=== PATIENT | female | born 1950 | race Caucasian/White ===

== ENCOUNTER 2017-09-20 08:20 | Outpatient (CLI) | payer MEDICARE, BC ==
[~2017-09-20 08:20] MED LIST: CHOL10002 PO; DOCU-28 PO; METH-603 PO; METO100T14 PO; PANT-47 PO; SUCR1TAB34 PO; VITAMIN B12 IM
[2017-09-20 10:08] LABS: BASOPHILS % (AUTO) 0.5 % (0-1); EOSINOPHILS # (AUTO) 0.2 X10'3 (0-0.9); EOSINOPHILS % (AUTO) 2.8 % (0-6); HEMATOCRIT 36.8 % (35.0-45.0); HEMOGLOBIN 12.5 g/dl (12.0-16.0); LYMPHOCYTES # (AUTO) 2.5 X10'3 (1.1-4.8); MEAN CORPUSCULAR HEMOGLOBIN 29.7 PG (27.0-31.0); MEAN CORPUSCULAR HGB CONC 33.9 % (33.0-36.5); MEAN CORPUSCULAR VOLUME 87.5 FL (78-98); MONOCYTES # (AUTO) 0.6 X10'3 (0-0.9); MONOCYTES % (AUTO) 6.8 % (2-12); NEUTROPHILS # (AUTO) 4.9 X10'3 (1.8-7.7); NEUTROPHILS % (AUTO) 59.9 % (42-75); PLATELET COUNT 259 X10'3 (140-440); RED CELL DISTRIBUTION WIDTH 14.9 % (11.5-14.5); WHITE BLOOD COUNT 8.2 X10'3 (4.5-11.0)
[2017-09-20 10:11] LABS: CLARITY,URINE SLIGHTLY CLOUDY (Clear); COLOR,URINE YELLOW (Yellow); GLUCOSE, URINE NEGATIVE (Neg); KETONES,URINE NEGATIVE (Neg); LEUKOCYTE ESTERASE ,URINE NEGATIVE (Neg); NITRITES, URINE NEGATIVE (Neg); OCCULT BLOOD,URINE NEGATIVE (Neg); PH,URINE 5.5 (4.8-8.0); PROTEIN,URINE NEGATIVE (Neg); UROBILINOGEN,URINE 0.2 E.U/dL (0.2-1.0)
[2017-09-20 10:12] LABS: UA COLLECTION TYPE CLN CATCH MIDSTREAM
[2017-09-20 10:21] LABS: RBC,URINE NONE SEEN /HPF (0-2); WBC,URINE 0-4 /HPF (0-4)
[2017-09-20 10:22] LABS: BACTERIA,URINE 2+ /HPF (Neg)
[2017-09-20 10:23] LABS: MUCUS STRANDS NONE SEEN /LPF (Neg); SQUAMOUS EPITHELIAL CELL,UR MODERATE /LPF (FEW)
[2017-09-20 10:32] LABS: ALANINE AMINOTRANSFERASE 36 U/L (12-78); ALBUMIN 3.5 G/DL (3.4-5.0); ALKALINE PHOSPHATASE 96 IU/L (46-116); ANION GAP 9 (8-16); ASPARTATE AMINO TRANSFERASE 24 U/L (10-37); BILIRUBIN,TOTAL 0.4 MG/DL (0.1-1.0); BLOOD UREA NITROGEN 18 MG/DL (7-18); BUN/CREATININE RATIO 22.2 (6.6-38.0); CALCIUM 8.9 MG/DL (8.5-10.1); CHLORIDE 104 MMOL/L (99-107); CHOL/HDL RATIO 4.5 (0.00-4.99); CHOLESTEROL 195 MG/DL (0-200); CREATINE KINASE 39 U/L (26-192); CREATININE 0.81 MG/DL (0.40-0.90); GLUCOSE 112 MG/DL (70-104); HDL CHOLESTEROL 43 MG/DL (35-60); LDL CHOLESTEROL 114 MG/DL (50-100); POTASSIUM 4.1 MMOL/L (3.5-5.1); SODIUM 139 MMOL/L (135-145); TOTAL CARBON DIOXIDE 26.3 MMOL/L (24-32); TOTAL PROTEIN 6.9 G/DL (6.4-8.2); TRIGLYCERIDES 243 MG/DL (20-135); eGFR 71 ML/MIN
== END 2017-09-20 23:59 | disposition home or self-care (01) ==
LOC: VAS 08:20
PROVIDERS: ATTEND Internal Medicine
DX: R59.9 Enlarged lymph nodes, unspecified (principal); R06.02 Shortness of breath; R60.0 Localized edema; J45.909 Unspecified asthma, uncomplicated; E11.9 Type 2 diabetes mellitus without complications
CPT/HCPCS: 36415; 71046; 80053; 80061; 81001; 82550; 83036; 84443; 85025; 93971

== ENCOUNTER 2020-12-04 08:54 | Emergency (ER) | payer MEDICARE, BC ==
[~2020-12-04] VITALS: Ht 167.6 cm; Wt 90.0 kg
[2020-12-04] MEDS ORDERED: acetaminophen 325mg tablet PO STA (09:06)
[2020-12-04] MEDS ORDERED: normal saline 1000ML IV soln IVB ONE (09:10)
[2020-12-04] MEDS ORDERED: morphine 4 MG/ML inj SYRINge IV ONE (09:10)
[2020-12-04] MEDS ORDERED: ondansetron/PF 4mg/2ml inj IV ONE (09:10)
[2020-12-04 09:59] LABS: BASOPHILS % (AUTO) 0.2 % (0-1); EOSINOPHILS % (AUTO) 0 % (0-6); HEMATOCRIT 36.2 % (35.0-45.0); HEMOGLOBIN 12.1 g/dl (12.0-16.0); LYMPHOCYTES # (AUTO) 0.6 X10'3 (1.1-4.8); LYMPHOCYTES % (AUTO) 5.5 % (21-51); MEAN CORPUSCULAR HEMOGLOBIN 30.4 PG (27.0-31.0); MEAN CORPUSCULAR HGB CONC 33.3 g/dL (33.0-36.5); MEAN CORPUSCULAR VOLUME 91.2 FL (78-98); MEAN PLATELET VOLUME 7.4 FL (7.4-10.4); MONOCYTES # (AUTO) 0.6 X10'3 (0-0.9); MONOCYTES % (AUTO) 5.6 % (2-12); NEUTROPHILS # (AUTO) 9.4 X10'3 (1.8-7.7); NEUTROPHILS % (AUTO) 88.7 % (42-75); PLATELET COUNT 165 X10'3 (140-440); RED BLOOD COUNT 3.97 X10'6 (4.20-5.60); RED CELL DISTRIBUTION WIDTH 14.2 % (11.5-14.5); WHITE BLOOD COUNT 10.6 X10'3 (4.5-11.0)
[2020-12-04 10:05] LABS: D-DIMER 0.53 MG/L FEU (0-0.50)
[2020-12-04 10:09] LABS: ALANINE AMINOTRANSFERASE 27 U/L (12-78); ALBUMIN 3.1 G/DL (3.4-5.0); ALBUMIN/GLOBULIN RATIO 0.8 (1.1-1.5); ALKALINE PHOSPHATASE 66 IU/L (46-116); ANION GAP 18 (8-16); ASPARTATE AMINO TRANSFERASE 2 U/L (10-37); BILIRUBIN,TOTAL 0.3 MG/DL (0.1-1.0); BLOOD UREA NITROGEN 22 MG/DL (7-18); BUN/CREATININE RATIO 19.1 (6.6-38.0); CALCIUM 7.6 MG/DL (8.5-10.1); CHLORIDE 98 MMOL/L (99-107); CREATININE 1.15 MG/DL (0.40-0.90); GLUCOSE 174 MG/DL (70-104); POTASSIUM 4.1 MMOL/L (3.5-5.1); SODIUM 133 MMOL/L (135-145); TOTAL CARBON DIOXIDE 16.8 MMOL/L (24-32); TOTAL PROTEIN 6.9 G/DL (6.4-8.2); eGFR 47 ML/MIN
[2020-12-04] MEDS ORDERED: CefTRIAXone 2gm/D5W 50ml BAG 50 ML IV ONE (10:40)
[2020-12-04 10:45] LABS: C-REACTIVE PROTEIN 17.31 MG/DL (0.0-0.5); FERRITIN 1276 NG/ML (8-252); LACTATE DEHYDROGENASE 459 U/L (81-234); MAGNESIUM 2.1 MG/DL (1.5-2.4)
[2020-12-04 10:46] LABS: CLARITY,URINE CLOUDY (Clear); COLOR,URINE YELLOW (Yellow); GLUCOSE, URINE NEGATIVE (Neg); KETONES,URINE >=80 mg/dl (Neg); LEUKOCYTE ESTERASE ,URINE NEGATIVE (Neg); NITRITES, URINE POSITIVE (Neg); OCCULT BLOOD,URINE MODERATE (Neg); PROTEIN,URINE 100 mg/dl (Neg); UROBILINOGEN,URINE 0.2 E.U/dL (0.2-1.0)
[2020-12-04 10:47] LABS: UA COLLECTION TYPE STRAIGHT CATH
[2020-12-04 11:02] LABS: BACTERIA,URINE 3+ /HPF (Neg); RBC,URINE 0-2 /HPF (0-2); SQUAMOUS EPITHELIAL CELL,UR FEW /LPF (FEW); WBC,URINE 0-4 /HPF (0-4)
--- NOTE | 2020-12-04 11:42 | NUR ---
relieving RN for break, pt is resting quietly on gurney, resp even and unlabored, pt c/o feeling hot, back pain, +nausea, headache, Dr Miles aware
[2020-12-04] MEDS ORDERED: CASIRIVIMAB (REGN10933) 1332MG 600 MG, IMDEVIMAB (REGN10987) 1332mg 600 MG in normal sa... IV ONE (12:50)
[2020-12-04] MEDS ORDERED: AZIT-31 PO (14:01)
[2020-12-04] MEDS ORDERED: DEXA6TAB6 PO (14:01)
[2020-12-04] MEDS ORDERED: dexamethasone 4mg tablet PO ONE (14:10)
[2020-12-04 16:56] VITALS: BP 118/67
[2020-12-05] MEDS ORDERED: MONT10TA32 PO (13:56)
[2020-12-05] MEDS ORDERED: OXYC1TAB17 PO (13:56)
[2020-12-05] MEDS ORDERED: MORP-92 PO (13:56)
[2020-12-05] MEDS ORDERED: FURO20TA4 PO (13:56)
[2020-12-05] MEDS ORDERED: BACL10TA2 PO (13:56)
[2020-12-05] MEDS ORDERED: LEVO75TA98 PO (13:56)
[2020-12-05] MEDS ORDERED: PREG50CA64 PO (13:56)
[2020-12-05] MEDS ORDERED: CYAN10007 IM (13:56)
[2020-12-05] MEDS ORDERED: LISI10TA27 PO (13:56)
[2020-12-05] MEDS ORDERED: CELE100C98 PO (13:56)
[2020-12-05] MEDS ORDERED: MAGN400T28 PO (13:56)
[2020-12-05] MEDS ORDERED: PANT40TA54 PO (13:56)
[2020-12-05] MEDS ORDERED: METO-411 PO (13:56)
== END 2020-12-04 16:58 | disposition home or self-care (01) ==
LOC: ER 08:54
DX: J18.9 Pneumonia, unspecified organism (principal); Z20.822 Contact with and (suspected) exposure to COVID-19; Z88.1 Allergy status to other antibiotic agents; Z88.2 Allergy status to sulfonamides; Z91.040 Latex allergy status; Z79.899 Other long term (current) drug therapy
CPT/HCPCS: 36415; 71045; 80053; 81001; 82728; 83605; 83615; 83735; 84145; 85025; 85379; 86140; 87040; 87077; 87088; 87186; 87502; 87503; 87635; 93005; 96361; 96365; 96367; 96375; 99285; C9803; J0696; J2270; J2405; J7030; Q0243

== ENCOUNTER 2020-12-31 17:59 | Emergency (ER) | payer MEDICARE, BC ==
[~2020-12-31] VITALS: Ht 167.6 cm; Wt 89.7 kg
[~2020-12-31 17:59] MED LIST changes: +ALBU8.5H17 INH; +ASPI-1265 PO; +BACL10TA2 PO; +BENZ-16 PO; -CHOL10002 PO; +CYAN10007 IM; -DOCU-28 PO; +FURO20TA4 PO; +LACT1CAP26 PO; +LEVO75TA98 PO; +LISI10TA27 PO; +MAGN400T28 PO; -METH-603 PO; +METO-411 PO; -METO100T14 PO; +MONT10TA32 PO; +MORP-92 PO; +OXYC1TAB17 PO; -PANT-47 PO; +PANT40TA54 PO; +PRED10TA23 PO; +PREG50CA64 PO; -SUCR1TAB34 PO; -VITAMIN B12 IM
[2020-12-31 19:12] LABS: BASOPHILS % (AUTO) 0.5 % (0-1); EOSINOPHILS # (AUTO) 0.1 X10'3 (0-0.9); EOSINOPHILS % (AUTO) 1.4 % (0-6); HEMATOCRIT 35.5 % (35.0-45.0); HEMOGLOBIN 11.9 g/dl (12.0-16.0); LYMPHOCYTES # (AUTO) 0.7 X10'3 (1.1-4.8); MEAN CORPUSCULAR HEMOGLOBIN 30.4 PG (27.0-31.0); MEAN CORPUSCULAR HGB CONC 33.4 g/dL (33.0-36.5); MEAN PLATELET VOLUME 6.6 FL (7.4-10.4); MONOCYTES # (AUTO) 0.4 X10'3 (0-0.9); MONOCYTES % (AUTO) 7.7 % (2-12); NEUTROPHILS # (AUTO) 4.6 X10'3 (1.8-7.7); NEUTROPHILS % (AUTO) 78.4 % (42-75); PLATELET COUNT 280 X10'3 (140-440); RED CELL DISTRIBUTION WIDTH 15.5 % (11.5-14.5); WHITE BLOOD COUNT 5.8 X10'3 (4.5-11.0)
[2020-12-31 19:34] LABS: ALANINE AMINOTRANSFERASE 37 U/L (12-78); ALBUMIN 3.2 G/DL (3.4-5.0); ALBUMIN/GLOBULIN RATIO 0.9 (1.1-1.5); ALKALINE PHOSPHATASE 76 IU/L (46-116); ANION GAP 8 (8-16); ASPARTATE AMINO TRANSFERASE 14 U/L (10-37); BILIRUBIN,TOTAL 0.4 MG/DL (0.1-1.0); BLOOD UREA NITROGEN 17 MG/DL (7-18); BUN/CREATININE RATIO 22.7 (6.6-38.0); CALCIUM 8.8 MG/DL (8.5-10.1); CHLORIDE 104 MMOL/L (99-107); CREATININE 0.75 MG/DL (0.40-0.90); GLUCOSE 136 MG/DL (70-104); POTASSIUM 4.7 MMOL/L (3.5-5.1); SODIUM 139 MMOL/L (135-145); TOTAL PROTEIN 6.8 G/DL (6.4-8.2); eGFR 76 ML/MIN
[2020-12-31 22:17] LABS: TROPONIN I < 0.04 NG/ML (0.0-0.05)
--- NOTE | 2020-12-31 23:30 | NUR ---
PT ROOMED IN BED 16. I ASSUMED CARE OF PT. PT A&OX4. CONVERSES EASILY AND SATTING WELL ON 3L NC.
[2020-12-31] MEDS ORDERED: iohexol 350MG/ML 100ml bottle IV ONE (23:56)
--- NOTE | 2021-01-01 00:33 | NUR ---
Leandro bardales in ED - 01/01/21 at 0034 by [email or web address] PT LUCY IN BED 16. I ASSUMED CARE OF PATIENT.
[2021-01-01 05:05] VITALS: BP 133/83
== END 2021-01-01 05:05 | disposition home or self-care (01) ==
LOC: ER 18:07
DX: Z02.89 Encounter for other administrative examinations (principal); R50.9 Fever, unspecified; R06.02 Shortness of breath; E78.00 Pure hypercholesterolemia, unspecified; I10 Essential (primary) hypertension; G89.29 Other chronic pain; Z88.2 Allergy status to sulfonamides; Z88.1 Allergy status to other antibiotic agents; Z91.040 Latex allergy status; Z79.82 Long term (current) use of aspirin; Z79.899 Other long term (current) drug therapy
CPT/HCPCS: 36415; 71046; 71275; 80053; 83605; 83880; 84145; 84484; 85025; 87040; 93005; 93971; 99285; Q9967